=== PATIENT | female | born 1945 | race Caucasian/White ===

== ENCOUNTER 2016-04-13 23:51 | Emergency (ER) | payer OTHER ==
[~2016-04-13] VITALS: Ht 154.9 cm; Wt 70.0 kg
[2016-04-13 23:53] VITALS: BP 145/66; PULSE 66; RESP 16; TEMP 98.1; O2SAT 96
[2016-04-14 01:19] VITALS: BP 122/57; PULSE 61; RESP 18; O2SAT 94
--- NOTE | 2016-04-14 01:28 | PD ---
HPI Chief Complaint: Flank/Kidney Pain Time Seen by Provider: 01:28 Travel History International Travel<30 days: No Contact w/Intl Traveler<30days: No Traveled to known affect area: No History of Present Illness HPI 70-year-old female came to the emergency room with history of left-sided flank pain that started 2 days ago. The pain wraps around the left flank and comes to the left lower quadrant area. No history of hematuria. No history of fever or chills. No history of vomiting or diarrhea. Currently patient has pain but tolerating it well. Her vital signs were stable. She has never had pain like this before. The pain is just there. Nothing she does makes it better or worse. PFSH Past Medical History Narrative Medical List of her past medical history as reviewed from the nursing note. 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 Reported Meds & Prescriptions Reported Meds & Active Scripts Active Macrobid (Nitrofurantoin Monoh/Nitrofur Macro) 100 Mg Cap 100 Mg PO BID 7 Days Reported Lorazepam 1 Mg Tab 1 Mg PO HS PRN Ritalin LA 24 HR (Methylphenidate HCl) 30 Mg Caper 30 Mg PO DAILY Levothyroxine (Levothyroxine Sodium) 25 Mcg Tab 37.5 Mcg PO DAILY Celexa (Citalopram Hydrobromide) 20 Mg Tab 20 Mg PO DAILY Nexium (Esomeprazole DR) 40 Mg Capdr 40 Mg PO DAILY Hydrochlorothiazide 12.5 Mg Cap 12.5 Mg PO DAILY Crestor (Rosuvastatin Calcium) 40 Mg Tab 40 Mg PO DAILY Fenofibrate 40 Mg Tab 1 Tab PO DAILY Lamictal (Lamotrigine) 100 Mg Tab 100 Mg PO BID Keppra (Levetiracetam) 500 Mg Tab 500 Mg PO BID Narrative Medication Awaiting for the nurse to do the medical reconciliation. Review of Systems Except as stated in HPI: all other systems reviewed are Neg Physical Exam Narrative GENERAL: Awake, alert, no obvious distress SKIN: Warm and dry. HEAD: Atraumatic. Normocephalic. EYES: Pupils equal and round. No scleral icterus. No injection or drainage. ENT: No nasal bleeding or discharge. Mucous membranes pink and moist. NECK: Trachea midline. No JVD. CARDIOVASCULAR: Regular rate and rhythm. No murmur appreciated. RESPIRATORY: No accessory muscle use. Clear to auscultation. Breath sounds equal bilaterally. GASTROINTESTINAL: Abdomen soft, non-tender, nondistended. Hepatic and splenic margins not palpable. MUSCULOSKELETAL: No obvious deformities. No clubbing. No cyanosis. No edema. NEUROLOGICAL: Awake and alert. No obvious cranial nerve deficits. Motor grossly within normal limits. Normal speech. PSYCHIATRIC: Appropriate mood and affect; insight and judgment normal. Data Data Last Documented VS Vital Signs Date Time Temp Pulse Resp B/P Pulse Ox O2 Delivery O2 Flow Rate FiO2 04/14/16 04:42 56 18 110/57 94 04/14/16 03:05 Room Air 04/13/16 23:53 98.1 Orders Complete Blood Count With Diff (04/14/16 01:48) Comprehensive Metabolic Panel (04/14/16 01:48) Urinalysis - C+S If Indicated (04/14/16 01:48) Ct Abd/Pel W/O Iv Contrast (04/14/16 01:48) Ecg Monitoring (04/14/16 01:48) Iv Access Insert/Monitor (04/14/16 01:48) Sodium Chloride 0.9% Flush (Ns Flush) (04/14/16 02:00) Urine Culture (04/14/16 02:00) Nitrofurantoin Monohyd Macrocr (Macrobid (04/14/16 02:45) Sodium Chlorid 0.9% 500 Ml Inj (Ns 500 M (04/14/16 03:30) Labs Laboratory Tests Test 04/14/16 04/14/16 02:00 02:45 Urine Color YELLOW Urine Turbidity HAZY Urine pH 6.0 Urine Specific Romeo 1.017 Urine Protein NEG mg/dL Urine Glucose (UA) NEG mg/dL Urine Ketones NEG mg/dL Urine Occult Blood NEG Urine Nitrite NEG Urine Bilirubin NEG Urine Urobilinogen LESS THAN 2.0 MG/DL Urine Leukocyte Esterase MOD Urine RBC LESS THAN 1 /hpf Urine WBC 14 /hpf Urine Squamous Epithelial 3 /hpf Cells Urine Bacteria RARE /hpf Urine Mucus FEW /lpf Microscopic Urinalysis Comment CULTURE INDICATED Sodium Level 130 MEQ/L Potassium Level 3.8 MEQ/L Chloride Level 96 MEQ/L Carbon Dioxide Level 29.6 MEQ/L Anion Gap 4 MEQ/L Blood Urea Nitrogen 13 MG/DL Creatinine 1.27 MG/DL Estimat Glomerular Filtration 42 ML/MIN Rate Random Glucose 100 MG/DL Calcium Level 9.8 MG/DL Total Bilirubin 0.4 MG/DL Aspartate Amino Transf 43 U/L (AST/SGOT) Alanine Aminotransferase 32 U/L (ALT/SGPT) Alkaline Phosphatase 86 U/L Total Protein 7.0 GM/DL Albumin 3.7 GM/DL White Blood Count 6.6 TH/MM3 Red Blood Count 3.88 MIL/MM3 Hemoglobin 12.3 GM/DL Hematocrit 35.6 % Mean Corpuscular Volume 91.8 FL Mean Corpuscular Hemoglobin 31.7 PG Mean Corpuscular Hemoglobin 34.5 % Concent Red Cell Distribution Width 12.6 % Platelet Count 251 TH/MM3 Mean Platelet Volume 8.1 FL Neutrophils (%) (Auto) 49.4 % Lymphocytes (%) (Auto) 37.9 % Monocytes (%) (Auto) 10.9 % Eosinophils (%) (Auto) 1.4 % Basophils (%) (Auto) 0.4 % Neutrophils # (Auto) 3.2 TH/MM3 Lymphocytes # (Auto) 2.5 TH/MM3 Monocytes # (Auto) 0.7 TH/MM3 Eosinophils # (Auto) 0.1 TH/MM3 Basophils # (Auto) 0.0 TH/MM3 CBC Comment DIFF FINAL Differential Comment [facility] Medical Decision Making Medical Screen Exam Complete: Yes Emergency Medical Condition: Yes Medical Record Reviewed: Yes Differential Diagnosis Renal colic, pyelonephritis, muscular skeletal pain Narrative Course 2:45 AM CAT scan does not show any ureteral stones. UA was suggestive of UTI. I have ordered Macrobid. Awaiting for the blood test results to come back. Patient is asleep and does not seem to be in any distress currently. 3:11 AM blood work was a redraw. The CBC has come back which is within normal limits. Awaiting for the chemistry results. 3:29 AM chemistry result is back and shows mild hyponatremia. I've ordered 500 ML's of normal saline bolus. Creatinine is 1.29. I will discharge her home with prescription for Macrobid after the boluses done. I let the patient know about the test results. Procedures EKG Prior to Arrival: No Diagnosis Primary Impression: UTI (urinary tract infection) Qualified Code: N39.0 - Urinary tract infection without hematuria, site unspecified Additional Impression: Hyponatremia Referrals: Primary Care Physician 1 week Additional Instructions: Please return to the ER if the condition worsens or any other new emergent concerns. Otherwise follow-up with your primary care. Take medication as per the prescription direction. Med/Other Pt SpecificInfo: Prescription(s) given Scripts Nitrofurantoin Monohydrate Macrocrystals (Macrobid)100 Mg [id number] Mg PO BID 7 Days Ref 0 Prov:Jennifer Nickerson MD 04/14/16 Disposition: 01 DISCHARGE HOME Condition: Stable Jennifer Nickerson MD Apr 14, 2016 01:28
[2016-04-14] MEDS ORDERED: SODIUM CHLORIDE 0.9% FLUSH 5 ML FLUSH IVF PRN (02:00)
[2016-04-14 02:15] VITALS: BP 115/56; PULSE 58; RESP 16; O2SAT 98
--- NOTE | 2016-04-14 02:16 | RADRPT ---
EXAM DATE/TIME: 04/14/2016 01:59 [facility] COMPARISON: No previous studies available for comparison. INDICATIONS : Left flank pain. ORAL CONTRAST: No oral contrast ingested. RADIATION DOSE: 9.53 CTDIvol (mGy) MEDICAL HISTORY : Hypertension. Cardiovascular disease Chronic obstructive pulmonary disease.Asthma SURGICAL HISTORY : CABG ENCOUNTER: Initial ACUITY: 1 day PAIN SCALE: 8/10 LOCATION: Left flank TECHNIQUE: Volumetric scanning of the abdomen and pelvis was performed. Using automated exposure control and ad justment of the mA and/or kV according to patient size, radiation dose was kept as low as reasonably achievable to obtain optimal diagnostic quality images. FINDINGS: LOWER LUNGS: The visualized lower lungs are clear. LIVER: Homogeneous density without lesion. There is no dilation of the biliary tree. Gallbladder is absent . SPLEEN: Normal size without lesion. PANCREAS: Within normal limits. KIDNEYS: Normal in size and shape. There is no mass, stone, or hydronephrosis. ADRENAL GLANDS: Within normal limits. VASCULAR: There is no aortic aneurysm. There is moderate atherosclerotic disease. BOWEL/MESENTERY: The stomach, small bowel, and colon demonstrate no acute abnormality. There is no free intraperitone al air or fluid. There is a small hiatal hernia. Sigmoid diverticulosis is present. ABDOMINAL WALL: Mesh is present along the anterior abdominal wall related to prior hernia repair. RETROPERITONEUM: There is no lymphadenopathy. BLADDER: No wall thickening or mass. REPRODUCTIVE: Uterus appears absent. INGUINAL: There is no lymphadenopathy or hernia. MUSCULOSKELETAL: There are degenerative changes of the lumbar spine. CONCLUSION: 1. No abnormality is identified to explain the left flank pain. No renal stones are visualized. 2. Nonacute findings include small hiatal hernia, moderate atherosclerotic disease, and sigmoid diver ticulosis. Arben Vivas MD on April 14, 2016 at 2:11 Board Certified Radiologist. This report was verified electronically.
[2016-04-14 02:29] LABS: BACTERIA, URINE RARE /hpf; BLOOD, URINE NEG (NEG); COMMENT (UR) CULTURE INDICATED; CULTURE IF INDICATED CULTURE INDICATED; GLUCOSE,URINE NEG (NEG); KETONE, URINE NEG (NEG); MUCUS URINE FEW /lpf (OCC); NITRITE,URINE NEG (NEG); SQUAMOUS EPITHELIAL CELL URINE 3 /hpf (0-5); URINE COLOR YELLOW (YELLW/STRAW)
[2016-04-14] MEDS ORDERED: NITROFURANTOIN MONOHYD MACROCR 100 MG CAP PO ONE (02:45)
[2016-04-14 02:53] LABS: ALKALINE PHOSPHATASE 86 U/L (45-117); TOTAL BILIRUBIN ADULT 0.4 MG/DL (0.2-1.0)
[2016-04-14] MEDS ORDERED: LEVE500 PO (03:04)
[2016-04-14] MEDS ORDERED: NEXI40CA PO (03:04)
[2016-04-14] MEDS ORDERED: FENO1TAB46 PO (03:04)
[2016-04-14] MEDS ORDERED: HYDR12.57 PO (03:04)
[2016-04-14] MEDS ORDERED: LAMO100 PO (03:04)
[2016-04-14] MEDS ORDERED: CELE20TA PO (03:04)
[2016-04-14] MEDS ORDERED: ROSU40 PO (03:04)
[2016-04-14 03:05] VITALS: BP 110/59; PULSE 63; RESP 18; O2SAT 95
[2016-04-14 03:07] LABS: AUTOMATED NEUTROPHIL # 3.2 TH/MM3 (1.8-7.7); BASOPHIL % 0.4 % (0.0-2.0); EOSINOPHIL # 0.1 TH/MM3 (0-0.4); EOSINOPHIL % 1.4 % (0.0-4.0); HEMATOCRIT 35.6 % (35.0-46.0); HEMO FLAGS DIFF FINAL; LYMPH % 37.9 % (9.0-44.0); LYMPHOCYTE # 2.5 TH/MM3 (1.0-4.8); MEAN CELL VOLUME 91.8 FL (80.0-100.0); MEAN CORPUSCULAR HEMOGLOBIN 31.7 PG (27.0-34.0); MEAN CORPUSCULAR HGB CONC 34.5 % (32.0-36.0); MONO % 10.9 % (0.0-8.0); NEUT % 49.4 % (16.0-70.0); PLATELET COUNT 251 TH/MM3 (150-450); RED BLOOD COUNT 3.88 MIL/MM3 (4.00-5.30); RED CELL DISTRIBUTION WIDTH 12.6 % (11.6-17.2); WHITE BLOOD COUNT 6.6 TH/MM3 (4.0-11.0)
[2016-04-14] MEDS ORDERED: RITA30CA PO (03:07)
[2016-04-14] MEDS ORDERED: LEVO25TA4 PO (03:07)
[2016-04-14] MEDS ORDERED: LORA1TAB12 PO (03:07)
[2016-04-14 03:08] LABS: ANION GAP 4 MEQ/L (5-15)
[2016-04-14 03:09] LABS: ALT (GPT) 32 U/L (10-53); AST (GOT) 43 U/L (15-37); BICARBONATE 29.6 MEQ/L (21.0-32.0); BLOOD UREA NITROGEN 13 MG/DL (7-18); CHLORIDE 96 MEQ/L (98-107); GLOMERULAR FILTRATION RATE 42 ML/MIN (>89); SODIUM (NA) 130 MEQ/L (136-145)
[2016-04-14 03:26] LABS: POTASSIUM 3.8 MEQ/L (3.5-5.1)
[2016-04-14] MEDS ORDERED: SODIUM CHLORID 0.9% 500 ML INJ 500 ML IV ONE (03:30)
[2016-04-14] MEDS ORDERED: MACR100C2 PO (03:35)
[2016-04-14 04:42] VITALS: BP 110/57
== END 2016-04-14 04:46 | disposition home or self-care (01) ==
LOC: NEPC 23:51
DX: N39.0 Urinary tract infection, site not specified (principal); E87.1 Hypo-osmolality and hyponatremia; I10 Essential (primary) hypertension; J44.9 Chronic obstructive pulmonary disease, unspecified; J45.909 Unspecified asthma, uncomplicated
CPT/HCPCS: 74176; 80053; 81001; 85025; 87086; 96360; 99284; J7040